=== PATIENT | male | born 1950 | race Caucasian/White ===

== ENCOUNTER 2020-04-03 16:25 | Emergency (ER) | payer MEDICARE, OTHER ==
[~2020-04-03] VITALS: Ht 190.5 cm; Wt 94.8 kg
[2020-04-03 16:35] VITALS: BP 148/84
[2020-04-03] MEDS ORDERED: ELIQUIS2.5 MG PO (16:39)
[2020-04-03] MEDS ORDERED: LAMICTAL100 MG PO (16:39)
[2020-04-03] MEDS ORDERED: ZOLOFT50 M1 PO (16:40)
[2020-04-03] MEDS ORDERED: EZALLOR SPRINKL20 MG PO (16:40)
[2020-04-03] MEDS ORDERED: TOPROL XL25 MG PO (16:40)
[2020-04-03] MEDS ORDERED: KEFLEX500 M1 PO (17:26)
== END 2020-04-03 17:36 | disposition home or self-care (01) ==
LOC: M.ERS 16:25
DX: S01.511A Laceration without foreign body of lip, initial encounter (principal); I48.91 Unspecified atrial fibrillation; Z86.73 Personal history of transient ischemic attack (TIA), and cerebral infarction without residual deficits; Z88.8 Allergy status to other drugs, medicaments and biological substances; W01.0XXA Fall on same level from slipping, tripping and stumbling without subsequent striking against object, initial encounter; Y93.89 Activity, other specified; Y92.89 Other specified places as the place of occurrence of the external cause; Y99.8 Other external cause status